=== PATIENT | male | born 1965 | race Caucasian/White ===

== ENCOUNTER 2019-01-21 16:42 | Emergency (ER) | payer OTHER ==
[~2019-01-21] VITALS: Wt 116.5 kg
--- NOTE | 2019-01-21 17:32 | EN ---
Date/Time of Note Date/Time of Note DATE: 01/21/19 TIME: 17:31 ER Progress Note Consulted ED1 for patient transfer from ED2 to ED1. Patient with c/o of SOB and chest heaviness without exertion. Positive DM and HTN history. Will order EKG. ANGEL BARRETO NP Jan 21, 2019 17:32
--- NOTE | 2019-01-21 17:38 | EN ---
Date/Time of Note Date/Time of Note DATE: 01/21/19 TIME: 17:36 ER Progress Note Consulted with Dr. Dave regarding patient physical assessment. States he will assume care. Beds not available at ED 1, so initial workup will begin while patient is in ED2. EKG completed and given to Dr. Dave. ANGEL BARRETO NP Jan 21, 2019 17:38
[2019-01-21 18:58] VITALS: BP 174/89; PULSE 80; RESP 20
--- NOTE | 2019-01-22 01:01 | ERD ---
ER Documentation Chief Complaint Chief Complaint SUDDEN ONSET OF SOB HPI 53 year old male who presents with shortness of breath earlier today. Patients state episode occurred suddenly and self-resolved. He denies cardiac history, no HTN, no HL, no DM. He thinks may have been anxiety but is not sure. No nausea, vomiting, or diaphoresis. No alleviating or aggravating factors. ROS All systems reviewed and are negative except as per history of present illness. Allergies Allergies: Coded Allergies: No Known Allergy (Unverified , 01/21/19) PMhx/Soc Medical and Surgical Hx: pt denies Surgical Hx Hx Cardiac Disorders: Yes (HTN) Hx Psychiatric Problems: No Hx Miscellaneous Medical Probl: Yes (DM) Hx Alcohol Use: No Hx Substance Use: No Hx Tobacco Use: No Smoking Status: Never smoker Physical Exam Vitals Vital Signs Date Temp Pulse Resp B/P (MAP) Pulse Ox O2 O2 Flow FiO2 Time Delivery Rate 01/21/19 98.0 80 20 174/89 98 Room Air 18:58 (117) 01/21/19 81 18 92 Room Air 18:06 01/21/19 98.3 83 18 169/93 95 16:51 (118) Physical Exam Const: well appearing, non-toxic Head: Atraumatic Eyes: Normal Conjunctiva ENT: Normal External Ears, Nose and Mouth. Neck: Full range of motion. No meningismus. Resp: Clear to auscultation bilaterally Cardio: Regular rate and rhythm, no murmurs Abd: Soft, non tender, non distended. Normal bowel sounds Skin: No petechiae or rashes Back: No midline or flank tenderness Ext: No cyanosis, or edema Neur: Awake and alert Psych: Normal Mood and Affect Result Diagram: 01/21/19175201/21/191752 Results 24 hrs Laboratory Tests Test 01/21/19 17:53 White Blood Count 9.9 10^3/ul Red Blood Count 6.02 10^6/ul Hemoglobin 15.9 g/dl Hematocrit 49.3 % Mean Corpuscular Volume 81.9 fl Mean Corpuscular Hemoglobin 26.4 pg Mean Corpuscular Hemoglobin Concent 32.3 g/dl Red Cell Distribution Width 13.2 % Platelet Count 275 10^3/UL Mean Platelet Volume 10.2 fl Immature Granulocytes % 0.600 % Neutrophils % 61.3 % Lymphocytes % 29.3 % Monocytes % 5.3 % Eosinophils % 2.8 % Basophils % 0.7 % Nucleated Red Blood Cells % 0.0 /100WBC Immature Granulocytes # 0.060 10^3/ul Neutrophils # 6.1 10^3/ul Lymphocytes # 2.9 10^3/ul Monocytes # 0.5 10^3/ul Eosinophils # 0.3 10^3/ul Basophils # 0.1 10^3/ul Nucleated Red Blood Cells # 0.0 10^3/ul Prothrombin Time 13.0 Sec Prothrombin Time Ratio 1.0 INR International Normalized Ratio 0.97 Sodium Level 137 mmol/L Potassium Level 4.0 mmol/L Chloride Level 100 mmol/L Carbon Dioxide Level 31 mmol/L Anion Gap 6 Blood Urea Nitrogen 22 mg/dl Creatinine 0.75 mg/dl Est Glomerular Filtrat Rate mL/min > 60 mL/min Glucose Level 282 mg/dl Calcium Level 9.5 mg/dl Total Bilirubin 0.4 mg/dl Direct Bilirubin 0.00 mg/dl Indirect Bilirubin 0.4 mg/dl Aspartate Amino Transf (AST/SGOT) 161 IU/L Alanine Aminotransferase (ALT/SGPT) 356 IU/L Alkaline Phosphatase 84 IU/L Troponin I < 0.012 ng/ml B-Type Natriuretic Peptide 25 PG/ML Total Protein 8.3 g/dl Albumin 4.7 g/dl Globulin 3.60 g/dl Albumin/Globulin Ratio 1.30 Procedures/MDM This is a 53 year old male who presents with shortness of breath. Exam revealed a well appearing non-toxic male in no acute distress. EKG showed NSR w normal intervals and no evidence of ischemia. CXR was unremarkable. His symptoms were atypical in nature for ACS however I did discuss this as a possibility and patient preferred not to be admitted. As an alternative, I recommended at least a repeat troponin in the ED to further risk stratify, however he declined this and wished to leave A. I explained R/B/A including inability to diagnose his symptoms, sudden cardiac , and permanent disability. The patient understood these risks and had decision making capacity. I encouraged him to return immediately for worsening symptoms, also urged to return should he have work up performed. At discharge, the patient was in no acute distress. Departure Diagnosis: Primary Impression: Shortness of breath Condition: Stable Patient Instructions: Chest Pain, Uncertain Cause, Dyspnea Additional Instructions: Return to this facility in 2 DAYS for a follow-up exam.Return sooner if your condition worsens. ROSALINDA BAUGH MD Jan 22, 2019 01:01
== END 2019-01-21 19:18 | disposition left against medical advice (07) ==
LOC: FTE 16:42
DX: R06.02 Shortness of breath (principal); E11.9 Type 2 diabetes mellitus without complications; I10 Essential (primary) hypertension
CPT/HCPCS: 36415; 71045; 80053; 83880; 84484; 85025; 85610; 93005; Z7502; Z7610